=== PATIENT | male | born 1930 | race Caucasian/White ===

== ENCOUNTER 2019-01-22 22:30 | Emergency (ER) | payer MEDICARE, MEDICAID ==
[~2019-01-22] VITALS: Ht 182.9 cm; Wt 72.6 kg
[2019-01-22 22:39] VITALS: Ht 182.9 cm; Wt 72.6 kg
[2019-01-23 00:01] LABS: RED CELL DISTRIBUTION WIDTH 14.8 % (11.5-14.5)
[2019-01-23 00:02] LABS: PLATELET COUNT 34 x10^3mcL (130-400)
[2019-01-23 00:28] LABS: BAND NEUTROPHIL 25 % (0-10); METAMYELOCTE 1 % (0-2); MONOCYTE 1 % (0-7); MYELOCYTE 1 % (0-2); SEGMENTED NEUTROPHILS 70 % (37-75); acanthocyte (spur cell) 3+; ovalocyte/elliptocyte 1+; rbc morphology (normal/abnorm) ABNORMAL (NORMAL); tear drop cell (dacryocyte) 1+
[2019-01-23 00:29] LABS: PLATELET MORPHOLOGY PLATELETS DECREASED
[2019-01-23 00:37] LABS: ALKALINE PHOSPHATASE 46 U/L (46-116); ALT/SGPT 15 U/L (16-63); BILIRUBIN TOTAL 2.7 mg/dL (0.20-1.00); CALCIUM 7.9 mg/dL (8.5-10.1); CARBON DIOXIDE 18.3 mmol/L (21-32); CREATININE SERUM 3.4 mg/dL (0.7-1.3); GLUCOSE SERUM 108 mg/dL (74-106)
[2019-01-23 00:46] LABS: ALBUMIN 1.5 g/dL (3.4-5.0); TOTAL PROTEIN, SERUM 4.7 g/dL (6.4-8.2)
[2019-01-23 00:49] LABS: AST/SGOT 43 U/L (15-37); CHLORIDE SERUM 100 mmol/L (98-107); POTASSIUM SERUM 4.8 mmol/L (3.5-5.1); SODIUM SERUM 133 mmol/L (136-145)
[2019-01-23 03:04] VITALS: BP 122/54
== END 2019-01-23 11:12 | disposition expired ==
LOC: ED 22:30
PROVIDERS: Emergency Medicine
DX: I46.9 Cardiac arrest, cause unspecified (principal); K56.609 Unspecified intestinal obstruction, unspecified as to partial versus complete obstruction; K70.30 Alcoholic cirrhosis of liver without ascites
CPT/HCPCS: 82962; G0480; J2543; J3475; J7030; Q0092